=== PATIENT | female | born 1990 | race African-American/Black ===

== ENCOUNTER 2018-07-21 13:01 | Emergency (ER) | payer MEDICAID ==
[~2018-07-21] VITALS: Ht 162.6 cm; Wt 97.0 kg
[2018-07-21 13:07] VITALS: BP 127/83
== END 2018-07-21 19:00 | disposition left against medical advice (07) ==
LOC: ER 13:01
DX: Z53.21 Procedure and treatment not carried out due to patient leaving prior to being seen by health care provider (principal)